=== PATIENT | female | born 1955 ===

== ENCOUNTER 2022-01-27 09:16 | Outpatient (CLI) | payer MEDICARE, OTHER | END 2022-01-27 09:17 | disposition home or self-care (01) | LOC: CSHCT 09:16 | PROVIDERS: ATTEND Otolaryngology Plastic Surgery within the Head & Neck | DX: H72.91 Unspecified perforation of tympanic membrane, right ear (principal); H73.891 Other specified disorders of tympanic membrane, right ear | CPT/HCPCS: 70480 ==